=== PATIENT | male | born 1975 | race African-American/Black ===

== ENCOUNTER 2019-06-01 16:05 | Outpatient (CLI) | payer OTHER ==
[~2019-06-01 16:05] MED LIST: AUGMENTIN1 TAB.CHE2; COZAAR25 MG; IOPHEN DM-100 MG/5 M PO; OSEL75CA PO
== END 2019-06-01 16:08 | disposition home or self-care (01) ==
LOC: LAB 16:05
DX: J11.1 Influenza due to unidentified influenza virus with other respiratory manifestations (principal); R05 Cough; J06.9 Acute upper respiratory infection, unspecified

== ENCOUNTER 2020-01-20 13:15 | Outpatient (CLI) | payer OTHER | END 2020-01-20 13:27 | disposition home or self-care (01) | LOC: NUCLEAR 13:15 → TOM 15:15 | PROVIDERS: ATTEND Internal Medicine Cardiovascular Disease | DX: I11.9 Hypertensive heart disease without heart failure (principal); R07.89 Other chest pain ==

== ENCOUNTER 2020-02-04 10:32 | Outpatient (CLI) | payer OTHER | END 2020-02-04 10:53 | disposition home or self-care (01) | LOC: NUCLEAR 10:32 | DX: I11.9 Hypertensive heart disease without heart failure (principal); I67.89 Other cerebrovascular disease ==

== ENCOUNTER → 2020-10-02 | Emergency (ER) | payer OTHER ==
[~2020-10-02] VITALS: Ht 175.3 cm; Wt 82.6 kg
[~2020-10-02] MED LIST changes: +CARVEDILOL6.25 MG; +COZAAR50 MG PO
== END | disposition home or self-care (01) ==
LOC: ER 09:54
DX: L02.416 Cutaneous abscess of left lower limb (principal); L02.212 Cutaneous abscess of back [any part, except buttock and flank]

== ENCOUNTER 2021-02-02 13:10 | Outpatient (CLI) | payer OTHER | END 2021-02-02 13:25 | disposition home or self-care (01) | LOC: PPH VACUNA 13:10 | PROVIDERS: ATTEND Emergency Medicine Pediatric Emergency Medicine | DX: Z23 Encounter for immunization (principal) ==

== ENCOUNTER 2021-03-14 09:00 | Outpatient (CLI) | payer OTHER | END 2021-03-14 09:15 | disposition home or self-care (01) | LOC: PPH VACUNA 09:00 | PROVIDERS: ATTEND Emergency Medicine Pediatric Emergency Medicine | DX: Z23 Encounter for immunization (principal) ==